=== PATIENT | female | born 1985 | race American Indian/Alaskan Native ===

== ENCOUNTER 2016-09-29 22:38 | Emergency (ER) | payer SELFPAY ==
[2016-09-30 00:05] LABS: Bilirubin,Urine NEG (Negative); Blood,Urine NEG (Negative); Ketones,Urine NEG (Negative); Leukocyte Esterase,Urine NEG (Negative); Mucus,Urine FEW /HPF; Nitrite,Urine NEG (Negative); Protein,Urine <15 mg/dL mg/dL (Negative); Urobilinogen,Urine < 2.0 mg/dL (<2.0)
[2016-09-30 00:47] VITALS: BP 151/80
[2016-09-30] MEDS ORDERED: ZOFRAN IM ONE (01:43)
[2016-09-30] MEDS ORDERED: TORADOL IM ONE (01:43)
[2016-09-30 02:21] LABS: Basophils % (Auto) 0.4 % (0.0-1.8); Eosinophils % (Auto) 0.8 % (0.0-4.3); Hematocrit 41.3 % (30.3-42.9); Hemoglobin 14.4 gm/dl (10.1-14.3); Mean Corpuscular HGB Conc 35 % (30-34); Mean Corpuscular Hemoglobin 31 pg (28-32); Mean Corpuscular Volume 88 fl (79-97); Platelet Count 228 K/mm3 (140-440); Red Blood Count 4.68 M/mm3 (3.65-5.03); White Blood Count 8.5 K/mm3 (4.5-11.0)
--- NOTE | 2016-09-30 02:42 | Emergency Department Report ---
ED Abdominal Pain HPI - General Chief Complaint: Abdominal Pain Stated Complaint: LOWER BACK PAIN/FREQUENT URINATION Time Seen by Provider: 09/30/16 01:29 Source: patient Mode of arrival: Ambulatory Limitations: No Limitations - History of Present Illness Initial Comments: 31-year-old female with a past medical history of kidney stones and hypertension presents to the hospital complaining of left flank pain 1 day. Pain described as constant and sharp. Rated 10/10 intensity. Worse palpation and movement. No alleviating factors. Positive associated nausea or vomiting. Complains of some mild lower back and lower abdominal pain and urinary frequency. Denies dysuria, fever, hematuria, or hematemesis. Previous kidney stones have passed spontaneously. Patient does perform heavy lifting at her job but denies any noticeable straining. No reports of urinary continence or lower extremity weakness or numbness Severity scale (0 -10): 9 - Related Data Previous Rx's Medication Instructions Recorded Last Taken Type Ketorolac [Toradol] 10 mg PO Q6H PRN #20 tablet 09/30/16 Unknown Rx Ondansetron [Zofran Odt] 4 mg PO Q8HR PRN #20 tab.rapdis 09/30/16 Unknown Rx Tamsulosin [Flomax] 0.4 mg PO QDAY #10 cap 09/30/16 Unknown Rx oxyCODONE /ACETAMINOPHEN [Percocet 1 tab PO Q6HR PRN #20 tablet 09/30/16 Unknown Rx 5/325] Allergies Allergy/AdvReac Type Severity Reaction Status Date / Time No Known Allergies Allergy Verified 09/29/16 23:01 ED Review of Systems ROS: Stated complaint: LOWER BACK PAIN/FREQUENT URINATION Other details as noted in HPI Comment: All other systems reviewed and negative Other: Constitutional: No fevers chills Eyes: No eye pain visual changes ENT: No ear pain or throat pain Neck: Denies pain Respiratory: Denies cough wheezing shortness of breath Cardiovascular: Denies chest pain, palpitations, syncope GI: As per HPI : As per HPI Musculoskeletal: Per HPI Skin: Denies rash, lesions, erythema Neurologic: Denies headache, numbness, weakness Psychiatric: Denies suicidal ideation, hallucinations ED Past Medical Hx - Past Medical History Previous Medical History?: Yes Hx Hypertension: Yes Hx Kidney Stones: Yes - Surgical History Past Surgical History?: No - Social History Smoking Status: Never Smoker Substance Use Type: Alcohol - Medications Home Medications: Home Medications Medication Instructions Recorded Confirmed Last Taken Type Ketorolac [Toradol] 10 mg PO Q6H PRN #20 tablet 09/30/16 Unknown Rx Ondansetron [Zofran Odt] 4 mg PO Q8HR PRN #20 tab.rapdis 09/30/16 Unknown Rx Tamsulosin [Flomax] 0.4 mg PO QDAY #10 cap 09/30/16 Unknown Rx oxyCODONE /ACETAMINOPHEN [Percocet 1 tab PO Q6HR PRN #20 tablet 09/30/16 Unknown Rx 5/325] ED Physical Exam - General Limitations: No Limitations - Other Other exam information: General: No limitations, patient is alert in no acute distress Head exam: Atraumatic, normocephalic Eyes exam: Normal appearance, pupils equal reactive to light, extraocular movements intact ENT: Moist mucous membrane, normal oropharynx Neck exam: Normal inspection, full range of motion, no meningismus nontender Respiratory exam: Clear to auscultation bilateral, no wheezes, rales, crackles Cardiovascular: Normal rate and rhythm, normal heart sounds Abdomen: Soft, nondistended, and nontender, with normal bowel sounds, no rebound, or guarding Extremity: Full range of motion normal inspection no deformity Back: Normal Inspection, full range of motion, left paraspinal muscle tenderness Neurologic: Alert, oriented x3, cranial nerves intact, no motor or sensory deficit Psychiatric: normal affect, normal mood Skin: Warm, dry, intact ED Course Vital Signs 09/29/16 09/29/16 09/30/16 22:53 23:01 00:43 Temperature 97.8 F 97.8 F 96.9 F L Pulse Rate 64 64 70 Respiratory 18 18 18 Rate Blood Pressure 148/104 Blood Pressure 148/104 151/80 [Right] O2 Sat by Pulse 100 100 Oximetry - Reevaluation(s) Reevaluation #1: 09/30/16 04:01 Patient states pain decreased to a 2/10 after Toradol and Zofran IM. Received 500 mL of normal saline ED Medical Decision Making - Lab Data Result diagrams: 09/30/16 02:11 09/30/16 02:11 Lab Results 09/29/16 09/30/16 09/30/16 Range/Units 23:17 02:11 02:11 WBC 8.5 (4.5-11.0) K/mm3 RBC 4.68 (3.65-5.03) M/mm3 Hgb 14.4 H (10.1-14.3) gm/dl Hct 41.3 (30.3-42.9) % MCV 88 (79-97) fl MCH 31 (28-32) pg MCHC 35 H (30-34) % RDW 13.0 L (13.2-15.2) % Plt Count 228 (140-440) K/mm3 Lymph % (Auto) 26.4 (13.4-35.0) % [place] % (Auto) 9.7 H (0.0-7.3) % Eos % (Auto) 0.8 (0.0-4.3) % Baso % (Auto) 0.4 (0.0-1.8) % Lymph # 2.2 (1.2-5.4) K/mm3 [place] # 0.8 (0.0-0.8) K/mm3 Eos # 0.1 (0.0-0.4) K/mm3 Baso # 0.0 (0.0-0.1) K/mm3 Seg Neutrophils % 62.7 (40.0-70.0) % Seg Neutrophils # 5.3 (1.8-7.7) K/mm3 Sodium 138 (137-145) mmol/L Potassium 3.5 L (3.6-5.0) mmol/L Chloride 95.1 L (98-107) mmol/L Carbon Dioxide 31 H (22-30) mmol/L Anion Gap 15 mmol/L BUN 23 H (7-17) mg/dL Creatinine 1.0 (0.7-1.2) mg/dL Estimated GFR > 60 ml/min BUN/Creatinine Ratio 23.00 % Glucose 114 H (65-100) mg/dL Calcium 9.7 (8.4-10.2) mg/dL Total Bilirubin 0.3 (0.1-1.2) mg/dL AST 27 (5-40) units/L ALT 30 (7-56) units/L Alkaline Phosphatase 95 (35-129) units/L Total Protein 7.7 (6.3-8.2) g/dL Albumin 3.9 (3.9-5) g/dL Albumin/Globulin Ratio 1.0 % Lipase 19 (13-60) units/L Urine Color Yellow (Yellow) Urine Turbidity Clear (Clear) Urine pH 7.0 (5.0-7.0) Ur Specific [place] 1.019 (1.003-1.030) Urine Protein <15 mg/dl (Negative) mg/dL Urine Glucose (UA) Neg (Negative) mg/dL Urine Ketones Neg (Negative) mg/dL Urine Blood Neg (Negative) Urine Nitrite Neg (Negative) Urine Bilirubin Neg (Negative) Urine Urobilinogen < 2.0 (<2.0) mg/dL Ur Leukocyte Esterase Neg (Negative) Urine WBC (Auto) 1.0 (0.0-6.0) /HPF Urine RBC (Auto) 6.0 (0.0-6.0) /HPF U Epithel Cells (Auto) 1.0 (0-13.0) /HPF Amorphous Crystals 1+ Urine Mucus Few /HPF Urine HCG, Qual Negative (Negative) - Radiology Data Radiology results: report reviewed CT abdomen and pelvis noncontrast: Multiple bilateral renal calculi. I have on the right than the right largest 4.3 mm. 9 on the left largest 3 mm. Mild left hydronephrosis and perinephric stranding with left UVJ calculus measuring 2.4 x 1.8 mm - Medical Decision Making Pain is improved in the ED. No longer vomiting. Positive dehydration treated with 500 mL normal saline. Patient tolerated by mouth. Will discharge home with medications for acute kidney stone. Given copy of CAT scan and encouraged to follow urologist due to multiple stones identified on CT. It is likely that patient will pass this UVJ stone spontaneously. - Differential Diagnosis muscle strain, UTI, renal colic, gastritis Critical Care Time: No Critical care attestation.: If time is entered above; I have spent that time in minutes in the direct care of this critically ill patient, excluding procedure time. ED Disposition Clinical Impression: Renal colic on left side, Chronic hypertension, Bilateral kidney stones, Hypokalemia, Dehydration Disposition: DISCHARGED TO HOME OR SELFCARE Is pt being admited?: No Does the pt Need Aspirin: No Condition: Stable Instructions: Hypertension (ED), Kidney Stones (ED) Additional Instructions: Take the medication as prescribed. Follow-up with the urologist provided or the urologist of your choice. return if symptoms worsen. Prescriptions: Ketorolac [Toradol] 10 mg PO Q6H PRN #20 tablet PRN Reason: Pain Ondansetron [Zofran Odt] 4 mg PO Q8HR PRN #20 tab.rapdis PRN Reason: Nausea And Vomiting Tamsulosin [Flomax] 0.4 mg PO QDAY #10 cap oxyCODONE /ACETAMINOPHEN [Percocet 5/325] 1 tab PO Q6HR PRN #20 tablet PRN Reason: Pain Referrals: [facility] [Provider Group] - 3-5 Days ELEAZAR ROGERS MD [Staff Physician] - 3-5 Days (Urology) Time of Disposition: 04:30
[2016-09-30 02:46] LABS: Alanine Aminotransferase 30 units/L (7-56); Albumin 3.9 g/dL (3.9-5); Alkaline Phosphatase 95 units/L (35-129); Bilirubin,Total 0.3 mg/dL (0.1-1.2); Blood Urea Nitrogen 23 mg/dL (7-17); Calcium 9.7 mg/dL (8.4-10.2); Carbon Dioxide 31 mmol/L (22-30); Chloride 95.1 mmol/L (98-107); Glucose 114 mg/dL (65-100); Lipase 19 units/L (13-60); Potassium 3.5 mmol/L (3.6-5.0); Sodium 138 mmol/L (137-145); Total Protein 7.7 g/dL (6.3-8.2)
[2016-09-30 02:53] LABS: Anion Gap 15 mmol/L
[2016-09-30] MEDS ORDERED: NACL 0.9% 500 ML 500 ML IV ONE (03:20)
[2016-09-30] MEDS ORDERED: K-DUR PO ONE (03:20)
--- NOTE | 2016-09-30 03:20 | Admit Criteria Form ---
Admission Criteria Documentation: ABDOMINAL PAIN Clinical Indications for Admission to Inpatient Care (Place 'X' for any and all applicable criteria): Admission is indicated for ANY ONE of the following(1)(2)(3)(4)(5): [X ]I. Inpatient admission required rather than observation care (Also use Abdominal Pain: Observation Care, as appropriate) because of ANY ONE of the following: [ ]a) Severe pain requiring acute inpatient management [ ]b) Identification of etiology/finding that requires inpatient care (eg, aortic dissection, free air) [ ]c) Absent bowel sounds with complete ileus(6) [ ]d) Suspected toxic megacolon [ ]e) Severe electrolyte abnormalities requiring inpatient care [ ]f) High fever or infection requiring inpatient admission as indicated by ANY ONE of following(7)(8): [ ] i) Appropriate outpatient or observational care antimicrobial treatment unavailable, not effective, or not feasible [ ] ii) Documented bacteremia [ ] iii) Temperature > 104.9 degrees F (oral) [ ] iv) T >103.1 F (oral) or < 96.8 F(rectal) that does not respond to all emergency treatment measures [ ]g) Signs of intestinal obstruction [B] [ ]h) Hemodynamic instability [ ]i) IV fluid to replace significant ongoing losses (greater than 3 L/m2 per day) (12)(13) [ ]j) Percutaneous or open drainage (eg, abscess, biliary tract ) procedures [ ]k) Parenteral nutrition regimen that must be implemented on inpatient basis [X]l) Other condition,treatment or monitoring requiring inpatient admission. [ ]II. Peritoneal signs present [ ]III. Surgery needed that cannot be performed on an ambulatory basis. [ ]IV. Evaluation requires patient to not eat or drink for extended period ( eg, more than 24 hours). [ ]V. Contraindications and/or Inappropriate clinical situations for Observational Care in patients with abdominal pain, when ANY ONE of the following is required: [ ]a) Thorough evaluation is required to prevent catastrophic events due to delays in diagnosing (e.g.Mesenteric ischemia) 1,3 [ ]b) Patient with severe pathology or with chronic symptoms unlikely to improve in the ED stay (3) [ ]. General contraindications and/or Inappropriate clinical situations for Observational Care in patients with abdominal pain, when ANY ONE of the following is required: [ ]a) Prediction of prolongation of LOS based on ANY ONE of the following may be considered as a contraindication for observational care 2, 3, 4, 5, 6, 7, 8, 9, 10, 11 [ ]i) Age > 65 yrs. [ ]ii) Patient arriving by ambulance [ ]iii) Patient with high acuity [ ]iv) Patient requiring vital sign monitoring [ ]v) Patient on IV medication [ ]b) Systolic blood pressures 180mmHg 3,12 [ ]c) Patient with altered mental status including delirium and other alteration of consciousness, (3) [ ]d) Patient whose discharge disposition will be to a longterm home or rehabilitation home should not be managed in Emergency Department Observation Unit. CMS rule requires 3 days hospital stay before such placement.3,13 [ ]e) Patient with failure to thrive due to broad array of etiologies 3,16,17 [ ]f) Inability to ambulate 3,14 Extended stay beyond goal length of stay may be needed for(2)(3): [ ]a) Persistent abdominal pain with suspected intra-abdominal process [ ]b) Diagnosed condition requiring continued stay (e.g., pancreatitis, complicated diverticulitis) [ ]c) Surgery (e.g., colectomy) The original [facility] content created by [employer] has been revised. The portions of the content which have been revised are identified through the use of italic text or in bold, and [facility] has neither reviewed nor approved the modified material.All other unmodified content is copyright [employer] [facility]. Please see references footnoted in the original [facility] [facility] edition 2016
--- NOTE | 2016-09-30 03:26 | Cat Scan Report ---
FINAL REPORT EXAM: CT ABDOMEN PELVIS WO CON HISTORY: l flank pain, hx of kidney stone TECHNIQUE: CT abdomen and pelvis without contrast. Multiplanar reformations. PRIORS: None FINDINGS: Solid organ evaluation limited from lack of IV contrast. Lung bases show no significant abnormality. No free intraperitoneal gas seen. Liver shows no significant abnormality. Normal biliary tree. Spleen shows no significant abnormality. Adrenal glands show no significant abnormality. Multiple bilateral renal calculi. Largest on the right is in the upper pole measuring 4.3 mm. There are approximately 5 calculi on the right. Largest stone on the left is in the mid kidney measuring about 3 mm in maximal size. There are at least 9 calculi on the left. Mild left hydronephrosis and perinephric stranding. Pancreas shows no significant abnormality. Abdominal aorta is non-aneurysmal. Normal-appearing appendix. No right lower quadrant inflammatory changes. No bowel obstruction identified. Small follicles in the left ovary. Grossly normal right ovary. Left UVJ calculus measures about 2.4 x 1.8 mm. IMPRESSION: 1. Multiple bilateral renal calculi. Mild left hydronephrosis. Left UVJ calculus.
== END 2016-09-30 04:21 | disposition home or self-care (01) ==
LOC: ED 22:38
DX: N20.0 Calculus of kidney (principal); I10 Essential (primary) hypertension; E86.0 Dehydration; E87.6 Hypokalemia
CPT/HCPCS: 36415; 74176; 80053; 81001; 81025; 83690; 85025; 96360; 96372; 99284; J1885; J2405; J7040

== ENCOUNTER 2018-04-13 23:41 | Emergency (ER) | payer SELFPAY ==
[2018-04-14 02:30] LABS: Basophils % (Auto) 0.7 % (0.0-1.8); Eosinophils # (Auto) 0.2 K/mm3 (0.0-0.4); Eosinophils % (Auto) 2.5 % (0.0-4.3); Hematocrit 41.2 % (30.3-42.9); Hemoglobin 14.1 gm/dl (10.1-14.3); Lymphocytes # (Auto) 2.3 K/mm3 (1.2-5.4); Mean Corpuscular HGB Conc 34 % (30-34); Mean Corpuscular Hemoglobin 30 pg (28-32); Mean Corpuscular Volume 88 fl (79-97); Monocytes # (Auto) 0.3 K/mm3 (0.0-0.8); Monocytes % (Auto) 5.4 % (0.0-7.3); Platelet Count 248 K/mm3 (140-440); Red Blood Count 4.67 M/mm3 (3.65-5.03); Red Cell Distribution Width 13.5 % (13.2-15.2)
[2018-04-14 03:06] LABS: Bilirubin,Urine NEG (Negative); Blood,Urine LG (Negative); Color,Urine Yellow (Yellow); Mucus,Urine FEW /HPF; Protein,Urine <15 mg/dL mg/dL (Negative); Urobilinogen,Urine < 2.0 mg/dL (<2.0)
--- NOTE | 2018-04-14 03:07 | Ultrasound Report ---
FINAL REPORT EXAM: US OB TRANSVAGINAL HISTORY: vaginal bleeding TECHNIQUE: Transvaginal sonographic evaluation was performed of the female pelvis with and without color Doppler imaging. PRIORS: CT abdomen and pelvis dated 09/29/2016. FINDINGS: FINDINGS: A single viable intrauterine fetus is identified. No large subchorionic hemorrhage is noted. Incidental left ovary probable corpus luteum. Evaluation of the Doppler images demonstrates preserved blood flow to bilateral ovaries. No significant free-fluid collection in the cul-de-sac. Measurements: Uterus measures 9.8 x 4.9 x 7.2 cm heart rate is documented at 98 beats per minute. Right ovary measures 2.6 x 1.6 x 1.7 cm Left ovary measures 2.9 x 2.0 x 1.9 cm [place]-rump length measures 2.0 mm, estimated age by ultrasound criteria 5 week 5 day. IMPRESSION: Single, viable intrauterine with a crown-rump length measuring 2 mm and an estimated age by ultrasound criteria 5 weeks 5 days.
--- NOTE | 2018-04-14 03:24 | Ultrasound Report ---
FINAL REPORT PROCEDURE: US OB < = 14 WEEKS FETUS TECHNIQUE: Real-time transabdominal sonography of the uterus, placenta, amniotic fluid, adnexa, and fetus was performed with image documentation. Measurements were obtained to determine age/size. M-mode Doppler was used to document heartbeat. CPT 52057 HISTORY: bleed COMPARISON: No prior studies are available for comparison. FINDINGS: CRL: 2 mm, which corresponds to a gestational age of: 5 weeks, 5 days. Yolk Sac: Normal. Embryonic Cardiac Activity: 98 beats per minute Gestational Sac: Normal. Amniotic fluid: Normal. Cervix: Normal. Right Ovary: Normal. Left Ovary: Normal. Estimated delivery date: 12/10/2018 Uterus and adnexa: Normal. IMPRESSION: Single live intrauterine gestation at approximately 5 weeks 5 days. EDC by US 12/10/2018
[2018-04-14] MEDS ORDERED: ZOFRAN ODT PO ONE (05:21)
--- NOTE | 2018-04-14 05:24 | Emergency Department Report ---
ED HPI - General Chief complaint: Vaginal Bleeding Stated complaint: BLEEDING/ 6 WEEK Source: patient Mode of arrival: Ambulatory Limitations: No Limitations - History of Present Illness Initial comments: 33-year-old -[place] female presents to the emergency room complaining of vaginal bleeding times today. Patient states that she was spotting since Sunday and then noticed blood today. Patient reports being about 5-1/2 weeks . Patient denies any abdominal pain. She does admit some nausea. MD Complaint: vaginal bleeding Associated symptoms: nausea/vomiting (nausea) Vaginal bleeding: light :: Yes Number of weeks : 5 Last menstrual period: 03/05/18 Pre-mariah care: none - Related Data : 1 Previous Rx's Medication Instructions Recorded Last Taken Type Ketorolac [Toradol] 10 mg PO Q6H PRN #20 tablet 09/30/16 Unknown Rx Ondansetron [Zofran Odt] 4 mg PO Q8HR PRN #20 tab.rapdis 09/30/16 Unknown Rx Tamsulosin [Flomax] 0.4 mg PO QDAY #10 cap 09/30/16 Unknown Rx oxyCODONE /ACETAMINOPHEN [Percocet 1 tab PO Q6HR PRN #20 tablet 09/30/16 Unknown Rx 5/325] Doxylamine Succinate/Vit B6 1 each PO QID PRN #120 tablet. 04/14/18 Unknown Rx [Cem Shin 10-10 mg Tablet] Leonila Root [Leonila] 250 mg PO QID PRN #120 capsule 04/14/18 Unknown Rx Vit No.130/Iron/Folic 1 each PO QDAY #90 tablet 04/14/18 Unknown Rx [ Tablet] Allergies Allergy/AdvReac Type Severity Reaction Status Date / Time No Known Allergies Allergy Verified 04/14/18 00:30 ED Review of Systems ROS: Stated complaint: BLEEDING/ 6 WEEK Other details as noted in HPI Respiratory: denies: cough, shortness of breath, wheezing Cardiovascular: denies: chest pain, palpitations Gastrointestinal: nausea, other (vaginal spotting). denies: abdominal pain, vomiting, diarrhea Genitourinary: denies: urgency, dysuria, discharge Musculoskeletal: as per HPI ED Past Medical Hx - Past Medical History Hx Hypertension: Yes Hx Kidney Stones: Yes - Surgical History Past Surgical History?: No - Social History Smoking Status: Never Smoker Substance Use Type: None - Medications Home Medications: Home Medications Medication Instructions Recorded Confirmed Last Taken Type Ketorolac [Toradol] 10 mg PO Q6H PRN #20 tablet 09/30/16 Unknown Rx Ondansetron [Zofran Odt] 4 mg PO Q8HR PRN #20 tab.rapdis 09/30/16 Unknown Rx Tamsulosin [Flomax] 0.4 mg PO QDAY #10 cap 09/30/16 Unknown Rx oxyCODONE /ACETAMINOPHEN [Percocet 1 tab PO Q6HR PRN #20 tablet 09/30/16 Unknown Rx 5/325] Doxylamine Succinate/Vit B6 1 each PO QID PRN #120 tablet.dr 04/14/18 Unknown Rx [Cem Dr 10-10 mg Tablet] Leonila Root [Leonila] 250 mg PO QID PRN #120 capsule 04/14/18 Unknown Rx Vit No.130/Iron/Folic 1 each PO QDAY #90 tablet 04/14/18 Unknown Rx [ Tablet] ED Physical Exam - General Limitations: No Limitations - Head Head exam: Present: atraumatic, normocephalic - ENT ENT exam: Present: mucous membranes moist - External exam: Present: normal external exam Speculum exam: Present: vaginal bleeding Bi-manual exam: Present: normal bi-manual exam ED Course Vital Signs 04/13/18 23:46 Temperature 98.3 F Pulse Rate 86 Respiratory 18 Rate Blood Pressure 155/94 O2 Sat by Pulse 100 Oximetry ED Medical Decision Making - Lab Data Result diagrams: 04/14/18 02:06 - Radiology Data Radiology results: report reviewed, image reviewed FINAL REPORT EXAM: US OB TRANSVAGINAL HISTORY: vaginal bleeding TECHNIQUE: Transvaginal sonographic evaluation was performed of the female pelvis with and without color Doppler imaging. PRIORS: CT abdomen and pelvis dated 09/29/2016. FINDINGS: FINDINGS: A single viable intrauterine fetus is identified. No large subchorionic hemorrhage is noted. Incidental left ovary probable corpus luteum. Evaluation of the Doppler images demonstrates preserved blood flow to bilateral ovaries. No significant free-fluid collection in the cul-de-sac. Measurements: Uterus measures 9.8 x 4.9 x 7.2 cm heart rate is documented at 98 beats per minute. Right ovary measures 2.6 x 1.6 x 1.7 cm Left ovary measures 2.9 x 2.0 x 1.9 cm [place]-rump length measures 2.0 mm, estimated age by ultrasound criteria 5 week 5 day. IMPRESSION: Single, viable intrauterine with a crown-rump length measuring 2 mm and an estimated age by ultrasound criteria 5 weeks 5 days. Transcribed By: DAGO Dictated By: NAATLIE TODD DO Electronically Authenticated By: NATALIE TODD DO Signed Date/Time: 04/14/18301 DD/ 1 TD/TT: 04/14/18301 - Medical Decision Making Patient has been evaluated by this provider fast track. Heat CT, ultrasound, pelvic exam and Zofran ordered. Patient has a IUP approximately 5-1/2 weeks. We'll discharge patient on antiemetics and vitamins. We'll place referral for [facility]. Critical care attestation.: If time is entered above; I have spent that time in minutes in the direct care of this critically ill patient, excluding procedure time. ED Disposition Clinical Impression: Spotting affecting in first trimester, Trichomonas vaginitis Disposition: DC- TO HOME OR SELFCARE Is pt being admited?: No Does the pt Need Aspirin: No Condition: Stable Instructions: Trichomoniasis (ED), Sexually Transmitted Diseases (ED) Additional Instructions: Complete antibiotics as prescribed. Please inform your sexual partner that he needs to be treated for Trichomonas as well. This is a STD. Follow up with her OB. Prescriptions: Doxylamine Succinate/Vit B6 [Cem Shin 10-10 mg Tablet] 1 each PO QID PRN # 120 tablet. PRN Reason: Vomiting Leonila Root [Leonila] 250 mg PO QID PRN #120 capsule PRN Reason: Nausea Vit No.130/Iron/Folic [ Tablet] 1 each PO QDAY #90 tablet Referrals: PRIMARY CARE, [Primary Care Provider] - 3-5 Days [facility] [Provider Group] - 3-5 Days [facility] [Provider Group] - 3-5 Days [facility] [Provider Group] - 3-5 Days [facility] [Provider Group] - 3-5 Days
[2018-04-14] MEDS ORDERED: FLAGYL PO ONE (06:22)
[2018-04-14 06:25] VITALS: BP 123/79
== END 2018-04-14 06:40 | disposition home or self-care (01) ==
LOC: ED 23:41
DX: O98.311 Other infections with a predominantly sexual mode of transmission complicating pregnancy, first trimester (principal); O26.851 Spotting complicating pregnancy, first trimester; A59.01 Trichomonal vulvovaginitis; O21.9 Vomiting of pregnancy, unspecified; O16.1 Unspecified maternal hypertension, first trimester; Z87.442 Personal history of urinary calculi; Z3A.01 Less than 8 weeks gestation of pregnancy
CPT/HCPCS: 36415; 76801; 76817; 81001; 84702; 85025; 86850; 86900; 86901; 87210; 99284; Q0162

== ENCOUNTER 2018-05-30 05:44 | Emergency (ER) | payer SELFPAY ==
[2018-05-30] MEDS ORDERED: NACL 0.9% 1000 ML 1,000 ML IV ONE (06:11)
[2018-05-30 06:48] LABS: Basophils % (Auto) 0.2 % (0.0-1.8); Eosinophils # (Auto) 0.1 K/mm3 (0.0-0.4); Eosinophils % (Auto) 1.8 % (0.0-4.3); Lymphocytes # (Auto) 0.9 K/mm3 (1.2-5.4); Lymphocytes % (Auto) 14.8 % (13.4-35.0); Mean Corpuscular HGB Conc 36 % (30-34); Mean Corpuscular Hemoglobin 31 pg (28-32); Mean Corpuscular Volume 86 fl (79-97); Monocytes # (Auto) 0.3 K/mm3 (0.0-0.8); Monocytes % (Auto) 5.5 % (0.0-7.3); Platelet Count 245 K/mm3 (140-440); Red Blood Count 4.69 M/mm3 (3.65-5.03); Red Cell Distribution Width 12.7 % (13.2-15.2)
[2018-05-30 07:03] LABS: Alanine Aminotransferase 14 units/L (7-56); Albumin 3.7 g/dL (3.9-5); BUN/Creatinine Ratio 18; Blood Urea Nitrogen 7 mg/dL (7-17); Calcium 8.7 mg/dL (8.4-10.2); Hemolysis Index 4
[2018-05-30 07:06] LABS: Hemoglobin 14.7 gm/dl (10.1-14.3)
[2018-05-30] MEDS ORDERED: REGLAN PO ONE (09:56)
[2018-05-30] MEDS ORDERED: LIDOCAINE VISCOUS 2% PO ONE (09:57)
--- NOTE | 2018-05-30 10:00 | Emergency Department Report ---
ED General Adult HPI - General Chief complaint: Abdominal Pain Stated complaint: ABD PAIN , N/V /D Time Seen by Provider: 05/30/18 09:55 Source: patient Mode of arrival: Ambulatory Limitations: No Limitations - History of Present Illness Initial comments: Patient is a 33-year-old female, past medical history who is 12 weeks . Patient presents with nausea and vomiting and diarrhea that going on for the last couple days. She states that she has been having nausea and vomiting for only a couple of days. She denies having any blood in the vomit. She follows [facility] . Patient denies having any vaginal bleeding or discharge. She states that she has mild abdominal pain which is a 4/10 vomiting makes it worse and nothing makes it better. Severity scale (0 -10): 8 - Related Data Previous Rx's Medication Instructions Recorded Last Taken Type Ketorolac [Toradol] 10 mg PO Q6H PRN #20 tablet 09/30/16 Unknown Rx Ondansetron [Zofran Odt] 4 mg PO Q8HR PRN #20 tab.rapdis 09/30/16 Unknown Rx Tamsulosin [Flomax] 0.4 mg PO QDAY #10 cap 09/30/16 Unknown Rx oxyCODONE /ACETAMINOPHEN [Percocet 1 tab PO Q6HR PRN #20 tablet 09/30/16 Unknown Rx 5/325] Doxylamine Succinate/Vit B6 1 each PO QID PRN #120 tablet.dr 04/14/18 Unknown Rx [Diclegis Dr 10-10 mg Tablet] Leonila Root [Leonila] 250 mg PO QID PRN #120 capsule 04/14/18 Unknown Rx Metoclopramide [Reglan] 10 mg PO TID PRN #30 tab 05/30/18 Unknown Rx Vit No.130/Iron/Folic 1 each PO QDAY #90 tablet 05/30/18 Unknown Rx [ Tablet] Allergies Allergy/AdvReac Type Severity Reaction Status Date / Time No Known Allergies Allergy Verified 04/14/18 00:30 ED Review of Systems ROS: Stated complaint: ABD PAIN , N/V /D Other details as noted in HPI Constitutional: denies: chills, fever Eyes: denies: eye pain, eye discharge, vision change ENT: denies: ear pain, throat pain Respiratory: denies: cough, shortness of breath, wheezing Cardiovascular: denies: chest pain, palpitations Endocrine: no symptoms reported Gastrointestinal: nausea, vomiting. denies: abdominal pain, diarrhea Genitourinary: denies: urgency, dysuria, discharge Musculoskeletal: denies: back pain, joint swelling, arthralgia Skin: denies: rash, lesions Neurological: denies: headache, weakness, paresthesias Psychiatric: denies: anxiety, depression Hematological/Lymphatic: denies: easy bleeding, easy bruising ED Past Medical Hx - Past Medical History Hx Hypertension: Yes Hx Kidney Stones: Yes - Surgical History Past Surgical History?: No Hx Coronary Stent: No Hx Appendectomy: No Hx Breast Surgery: No - Social History Smoking Status: Never Smoker Substance Use Type: None - Medications Home Medications: Home Medications Medication Instructions Recorded Confirmed Last Taken Type Ketorolac [Toradol] 10 mg PO Q6H PRN #20 tablet 09/30/16 Unknown Rx Ondansetron [Zofran Odt] 4 mg PO Q8HR PRN #20 tab.rapdis 09/30/16 Unknown Rx Tamsulosin [Flomax] 0.4 mg PO QDAY #10 cap 09/30/16 Unknown Rx oxyCODONE /ACETAMINOPHEN [Percocet 1 tab PO Q6HR PRN #20 tablet 09/30/16 Unknown Rx 5/325] Doxylamine Succinate/Vit B6 1 each PO QID PRN #120 tablet.dr 04/14/18 Unknown Rx [Diclegis Dr 10-10 mg Tablet] Leonila Root [Leonila] 250 mg PO QID PRN #120 capsule 04/14/18 Unknown Rx Metoclopramide [Reglan] 10 mg PO TID PRN #30 tab 05/30/18 Unknown Rx Vit No.130/Iron/Folic 1 each PO QDAY #90 tablet 05/30/18 Unknown Rx [ Tablet] ED Physical Exam - General Limitations: No Limitations General appearance: alert, in no apparent distress - Head Head exam: Present: atraumatic, normocephalic - Eye Eye exam: Present: normal appearance - ENT ENT exam: Present: mucous membranes moist - Neck Neck exam: Present: normal inspection - Respiratory Respiratory exam: Present: normal lung sounds bilaterally. Absent: respiratory distress - Cardiovascular Cardiovascular Exam: Present: regular rate, normal rhythm. Absent: systolic murmur, diastolic murmur, rubs, gallop - GI/Abdominal GI/Abdominal exam: Present: soft, normal bowel sounds - Extremities Exam Extremities exam: Present: normal inspection - Back Exam Back exam: Present: normal inspection - Neurological Exam Neurological exam: Present: alert, oriented X3 - Psychiatric Psychiatric exam: Present: normal affect, normal mood - Skin Skin exam: Present: warm, dry, intact, normal color. Absent: rash ED Course Vital Signs 05/30/18 05/30/18 05/30/18 05:52 05:57 09:37 Temperature 98 F 98.8 F Pulse Rate 95 H 95 H Respiratory 20 20 18 Rate Blood Pressure 145/95 Blood Pressure 145/95 [Right] O2 Sat by Pulse 98 98 99 Oximetry ED Medical Decision Making - Lab Data Result diagrams: 05/30/18 06:34 05/30/18 06:34 Lab Results 05/30/18 05/30/18 05/30/18 Range/Units 06:34 06:34 06:34 WBC 5.9 (4.5-11.0) K/mm3 RBC 4.69 (3.65-5.03) M/mm3 Hgb 14.7 H (10.1-14.3) gm/dl Hct 39.0 (30.3-42.9) % MCV 86 (79-97) fl MCH 31 (28-32) pg MCHC 36 H (30-34) % RDW 12.7 L (13.2-15.2) % Plt Count 245 (140-440) K/mm3 Lymph % (Auto) 14.8 (13.4-35.0) % [place] % (Auto) 5.5 (0.0-7.3) % Eos % (Auto) 1.8 (0.0-4.3) % Baso % (Auto) 0.2 (0.0-1.8) % Lymph # 0.9 L (1.2-5.4) K/mm3 [place] # 0.3 (0.0-0.8) K/mm3 Eos # 0.1 (0.0-0.4) K/mm3 Baso # 0.0 (0.0-0.1) K/mm3 Seg Neutrophils % 77.7 H (40.0-70.0) % Seg Neutrophils # 4.6 (1.8-7.7) K/mm3 Sodium 136 L (137-145) mmol/L Potassium 3.8 (3.6-5.0) mmol/L Chloride 100.2 (98-107) mmol/L Carbon Dioxide 21 L (22-30) mmol/L Anion Gap 19 mmol/L BUN 7 (7-17) mg/dL Creatinine 0.4 L (0.7-1.2) mg/dL Estimated GFR > 60 ml/min BUN/Creatinine Ratio 18 % Glucose 118 H (65-100) mg/dL Calcium 8.7 (8.4-10.2) mg/dL Total Bilirubin 0.30 (0.1-1.2) mg/dL AST 19 (5-40) units/L ALT 14 (7-56) units/L Alkaline Phosphatase 79 (35-129) units/L Total Protein 7.4 (6.3-8.2) g/dL Albumin 3.7 L (3.9-5) g/dL Albumin/Globulin Ratio 1.0 % HCG, Quant 81647 H (0-4) mIU/mL Urine Color (Yellow) Urine Turbidity (Clear) Urine pH (5.0-7.0) Ur Specific Ross (1.003-1.030) Urine Protein (Negative) mg/dL Urine Glucose (UA) (Negative) mg/dL Urine Ketones (Negative) mg/dL Urine Blood (Negative) Urine Nitrite (Negative) Urine Bilirubin (Negative) Urine Urobilinogen (<2.0) mg/dL Ur Leukocyte Esterase (Negative) Urine WBC (Auto) (0.0-6.0) /HPF Urine RBC (Auto) (0.0-6.0) /HPF U Epithel Cells (Auto) (0-13.0) /HPF Urine Bacteria (Auto) (Negative) /HPF Urine Mucus /HPF 05/30/18 Range/Units 09:36 WBC (4.5-11.0) K/mm3 RBC (3.65-5.03) M/mm3 Hgb (10.1-14.3) gm/dl Hct (30.3-42.9) % MCV (79-97) fl MCH (28-32) pg MCHC (30-34) % RDW (13.2-15.2) % Plt Count (140-440) K/mm3 Lymph % (Auto) (13.4-35.0) % [place] % (Auto) (0.0-7.3) % Eos % (Auto) (0.0-4.3) % Baso % (Auto) (0.0-1.8) % Lymph # (1.2-5.4) K/mm3 [place] # (0.0-0.8) K/mm3 Eos # (0.0-0.4) K/mm3 Baso # (0.0-0.1) K/mm3 Seg Neutrophils % (40.0-70.0) % Seg Neutrophils # (1.8-7.7) K/mm3 Sodium (137-145) mmol/L Potassium (3.6-5.0) mmol/L Chloride (98-107) mmol/L Carbon Dioxide (22-30) mmol/L Anion Gap mmol/L BUN (7-17) mg/dL Creatinine (0.7-1.2) mg/dL Estimated GFR ml/min BUN/Creatinine Ratio % Glucose (65-100) mg/dL Calcium (8.4-10.2) mg/dL Total Bilirubin (0.1-1.2) mg/dL AST (5-40) units/L ALT (7-56) units/L Alkaline Phosphatase (35-129) units/L Total Protein (6.3-8.2) g/dL Albumin (3.9-5) g/dL Albumin/Globulin Ratio % HCG, Quant (0-4) mIU/mL Urine Color Yellow (Yellow) Urine Turbidity Slightly-cloudy (Clear) Urine pH 6.0 (5.0-7.0) Ur Specific Ross 1.024 (1.003-1.030) Urine Protein 30 mg/dl (Negative) mg/dL Urine Glucose (UA) Neg (Negative) mg/dL Urine Ketones 20 (Negative) mg/dL Urine Blood Neg (Negative) Urine Nitrite Neg (Negative) Urine Bilirubin Neg (Negative) Urine Urobilinogen < 2.0 (<2.0) mg/dL Ur Leukocyte Esterase Neg (Negative) Urine WBC (Auto) 3.0 (0.0-6.0) /HPF Urine RBC (Auto) 8.0 (0.0-6.0) /HPF U Epithel Cells (Auto) 4.0 (0-13.0) /HPF Urine Bacteria (Auto) 1+ (Negative) /HPF Urine Mucus 3+ /HPF - Medical Decision Making Chief medical diagnosis: Hyperemesis gravidarum Differential diagnosis: electrolyte abnormality, UTI I will get cbc, bmp, oral zofran and viscous lidocaine. Critical care attestation.: If time is entered above; I have spent that time in minutes in the direct care of this critically ill patient, excluding procedure time. ED Disposition Clinical Impression: 12 weeks gestation of Nausea and vomiting Qualifiers: Vomiting type: unspecified Vomiting Intractability: unspecified Qualified Code( s): R11.2 - Nausea with vomiting, unspecified Disposition: DC- TO HOME OR SELFCARE Does the pt Need Aspirin: No Condition: Stable Instructions: Hyperemesis Gravidarum (ED) Prescriptions: Metoclopramide [Reglan] 10 mg PO TID PRN #30 tab PRN Reason: Nausea Vit No.130/Iron/Folic [ Tablet] 1 each PO QDAY #90 tablet Referrals: LINDA BOND MD [Staff Physician] - 3-5 Days
[2018-05-30] MEDS ORDERED: ZOFRAN ODT PO ONE (10:05)
[2018-05-30] MEDS ORDERED: ZOFRAN ODT ONE (10:08)
[2018-05-30 10:11] LABS: Bacteria,Urine 1+ /HPF (Negative); Bilirubin,Urine NEG (Negative); Blood,Urine NEG (Negative); Color,Urine Yellow (Yellow); Mucus,Urine 3+ /HPF; Urobilinogen,Urine < 2.0 mg/dL (<2.0)
[2018-05-30 10:37] VITALS: BP 129/88
== END 2018-05-30 10:36 | disposition home or self-care (01) ==
LOC: ED 05:44
DX: O26.891 Other specified pregnancy related conditions, first trimester (principal); O21.9 Vomiting of pregnancy, unspecified; R11.0 Nausea; R10.2 Pelvic and perineal pain; I10 Essential (primary) hypertension; Z79.899 Other long term (current) drug therapy
CPT/HCPCS: 36415; 80053; 81001; 84702; 85025; 99283; Q0162

== ENCOUNTER 2018-11-15 12:41 | Outpatient (CLI) | payer MEDICAID, OTHER ==
--- NOTE | 2018-11-15 12:52 | Emergency Department Report ---
Chief Complaint: Extremity Injury, Lower Stated Complaint: 36WKS /FELL Time Seen by Provider: 11/15/18 12:47 - HPI History of Present Illness: 36 w G1 obgyn [facility] [phone] she called them and they closed at 1130 fell on wet floor at work feet slipped and she landed on left knee did not hit left knee no vag bleed or dc some pelvic pressure knee tx at [facility] her work comp area so medically cleared pt stated she came here bc she wanted baby checked htn noted - preeclampsia w preg obgyn called to [facility] completed MSE screening note: Focused history and physical exam performed. Due to findings the following was ordered: ED Disposition for MSE Condition: Stable
[2018-11-15] MEDS ORDERED: LACTATED RINGERS 500 ML IV ONE (15:00)
[2018-11-15 16:32] VITALS: BP 123/74
--- NOTE | 2018-11-15 16:50 | Ultrasound Report ---
FINAL REPORT EXAM: US OB LIMITED HISTORY: placenta scan, intrauterine gestation at 35 weeks 6 days TECHNIQUE: Ultrasound limited evaluation of the gravid uterus PRIORS: 04/14/2018 FINDINGS: Single live intrauterine with cardiac activity documented at 122 beats per minute. Cephalic position. Placenta is anterior and left lateral with grade 0. no definite ultrasound evidence of placenta previ a or abruption on these images. IMPRESSION: Single viable early intrauterine No definite ultrasound evidence of placenta previa or abruption on these images
[2018-11-15 17:18] LABS: Hematocrit 34.9 % (30.3-42.9); Hemoglobin 12.2 gm/dl (10.1-14.3); Mean Corpuscular HGB Conc 35 % (30-34); Mean Corpuscular Volume 88 fl (79-97); Platelet Count 228 K/mm3 (140-440); Red Blood Count 3.98 M/mm3 (3.65-5.03); Red Cell Distribution Width 13.5 % (13.2-15.2)
[2018-11-15 17:37] LABS: Alanine Aminotransferase 14 units/L (7-56); Uric Acid 5.2 mg/dL (3.5-7.6)
[2018-11-15 17:41] LABS: Bacteria,Urine 1+ /HPF (Negative); Bilirubin,Urine NEG (Negative); Blood,Urine NEG (Negative); Calcium Oxalate Crystals,Urine 2+; Color,Urine Yellow (Yellow); Mucus,Urine 2+ /HPF; Urobilinogen,Urine < 2.0 mg/dL (<2.0)
[2018-11-15 17:53] LABS: Amphetamine Screen,Urine PRESUMPTIVE NEGATIVE; Benzodiazepines Screen,Urine PRESUMPTIVE NEGATIVE; Cannabinoid Screen,Urine PRESUMPTIVE NEGATIVE; Cocaine Screen,Urine PRESUMPTIVE NEGATIVE; Methadone Screen,Urine PRESUMPTIVE NEGATIVE; Opiate Screen,Urine PRESUMPTIVE NEGATIVE
== END 2018-11-15 17:53 | disposition home or self-care (01) ==
LOC: EDSTATUS 13:08 → TRG 13:14
PROVIDERS: ATTEND Obstetrics & Gynecology
DX: O47.00 False labor before 37 completed weeks of gestation, unspecified trimester (principal); O10.011 Pre-existing essential hypertension complicating pregnancy, first trimester; Z3A.01 Less than 8 weeks gestation of pregnancy; W19.XXXA Unspecified fall, initial encounter; Y93.89 Activity, other specified; Y92.89 Other specified places as the place of occurrence of the external cause; Y99.8 Other external cause status
CPT/HCPCS: 36415; 59025; 76815; 80307; 81001; 82565; 83615; 84450; 84460; 84550; 85027; 86900; 86901